=== PATIENT | female | born 1975 | race Caucasian/White ===

== ENCOUNTER 2016-11-09 19:52 | Inpatient (IN) | payer OTHER ==
[~2016-11-09] VITALS: Ht 157.5 cm; Wt 95.3 kg
[~2016-11-09 19:52] MED LIST: CLON0.5T4 PO; DIVA-18 PO; LAM1; PALI9TAB3 PO; PROT40
[2016-11-09] MEDS ORDERED: SODIUM CHLORIDE 0.9% 1,000 ML IV ONE (22:36)
[2016-11-09] MEDS ORDERED: ACETAMINOPHEN 325MG TABLET PO STA (22:36)
[2016-11-09] MEDS ORDERED: PIPERACILLIN/TAZ 3.375G PREMIX 50 ML IV ONE (22:45)
[2016-11-09] MEDS ORDERED: VANCOMYCIN 1 G PREMIX 200 ML IV ONE (22:45)
[2016-11-09 23:05] LABS: HEMATOCRIT. 36.9 % (36.0-48.0); HEMOGLOBIN. 12.6 g/dL (12.0-16.0); MEAN CORPUSCULAR HEMOGLOBIN 30.7 pg (28.0-32.0); MEAN CORPUSCULAR HGB CONC 34.3 g/dL (31.0-37.0); MEAN CORPUSCULAR VOLUME 89.5 fL (81.0-99.0); MEAN PLATELET VOLUME 10.4 fl (7.4-10.4); PLATELET 121 x1000/uL (130-400); RED BLOOD CELL COUNT 4.12 mill/uL (4.2-5.4); RED CELL DISTRIBUTION WIDTH 12.7 % (11.6-14.6); WHITE BLOOD COUNT 18.2 x1000/uL (4.5-11.0)
[2016-11-09 23:08] LABS: DIFFERENTIAL COMMENT 1
[2016-11-09 23:09] LABS: CHLORIDE 97 mEq/L (98-107); INDEX HEMOLYSI 1 (1-3); INDEX ICTERIC 1 (1-4); INDEX LIPEMIC 1 (1-3)
[2016-11-09 23:10] LABS: INR 1.1
[2016-11-09 23:16] LABS: ALANINE AMINOTRANSFERASE 26 IU/L (13-61); ANION GAP 15; CALCIUM 8.6 mg/dL (8.5-10.1); CARBON DIOXIDE 26 mEq/L (21-32); UREA NITROGEN BLOOD 10 mg/dL (7-21); eGFR > 60 mL/min (>60)
[2016-11-09 23:23] LABS: PLATELET ESTIMATE DECREASED
[2016-11-10] MEDS ORDERED: MORPHINE SULFATE 4 MG/ML CPJ (NOT FOR IM USE) IV ONE (01:45)
[2016-11-10] MEDS ORDERED: ONDANSETRON HCL 4MG/2ML VIAL IV ONE (01:45)
[2016-11-10] MEDS ORDERED: GUAIFENESIN-DM 200MG-20MG/10ML UDC PO ONE (05:30)
[2016-11-10] MEDS: HYDROCODONE/ACETAMINOPHEN 5/325MG TABLET PO PRN ×2 (09:41→15:03)
[2016-11-10] MEDS ORDERED: MORPHINE SULFATE 2 MG/ML CPJ (NOT FOR IM USE) IV PRN ×2 (09:45→19:30)
[2016-11-10 16:54] VITALS: BP 112/64
[2016-11-10 17:00] VITALS: BP 112/64
[2016-11-10] MEDS ORDERED: FLUO40CA49 PO (17:40)
[2016-11-10] MEDS ORDERED: LEVE500T19 PO ×2 (17:40)
[2016-11-10] MEDS ORDERED: DOCU-150 PO (17:40)
[2016-11-10] MEDS ORDERED: NORG1TAB18 PO (17:40)
[2016-11-10] MEDS ORDERED: DIVA500T51 PO (17:40)
[2016-11-10 18:00] VITALS: BP 112/64
[2016-11-10] MEDS ORDERED: LORAZEPAM 2MG/ML CPJ IV PRN (19:30)
[2016-11-10] MEDS ORDERED: ONDANSETRON HCL 4MG/2ML VIAL IV PRN (19:30)
[2016-11-10] MEDS ORDERED: ACETAMINOPHEN 325MG TABLET PO PRN (19:30)
[2016-11-10 20:00] VITALS: BP 104/71
[2016-11-10] MEDS ORDERED: DIVALPROEX SODIUM 500MG ER TABLET PO SCH (21:00)
[2016-11-10] MEDS ORDERED: LEVETIRACETAM 500MG TABLET PO SCH (21:00)
[2016-11-10] MEDS ORDERED: DIVALPROEX SODIUM 500MG DR TABLET PO SCH (21:00)
[2016-11-10] MEDS ORDERED: ENOXAPARIN 30MG/0.3ML SYR SUBCUT SCH (21:00)
[2016-11-10] MEDS ORDERED: VANCOMYCIN 1500MG in DEXTROSE 5% WATER 250ML IV NR (22:00)
[2016-11-10] MEDS: SODIUM CHLORIDE 0.9% 1,000 ML IV SCH (22:42)
[2016-11-10] MEDS: PIPERACILLIN/TAZ 3.375G PREMIX 50 ML IV SCH (22:42)
[2016-11-11] VITALS: BP 116/64
[2016-11-11] MEDS: PIPERACILLIN/TAZ 3.375G PREMIX 50 ML IV SCH ×4 (03:31→20:11)
[2016-11-11 04:00] VITALS: BP 99/57
[2016-11-11 05:49] LABS: BASOPHILS % 0.3 % (0.0-2.0); EOSINOPHILS % 0.6 % (0.0-5.0); HEMATOCRIT. 31.8 % (36.0-48.0); HEMOGLOBIN. 10.8 g/dL (12.0-16.0); MEAN CORPUSCULAR HEMOGLOBIN 30.5 pg (28.0-32.0); MEAN CORPUSCULAR VOLUME 89.9 fL (81.0-99.0); MEAN PLATELET VOLUME 10.4 fl (7.4-10.4); MONOCYTES % 9.9 % (2.0-8.0); NEUTROPHILS % 68.2 % (40.0-76.0); PLATELET 102 x1000/uL (130-400); RED BLOOD CELL COUNT 3.54 mill/uL (4.2-5.4); RED CELL DISTRIBUTION WIDTH 12.7 % (11.6-14.6); WHITE BLOOD COUNT 8.7 x1000/uL (4.5-11.0)
[2016-11-11 06:06] LABS: ANION GAP 11; CALCIUM 8.2 mg/dL (8.5-10.1); CARBON DIOXIDE 30 mEq/L (21-32); CHLORIDE 103 mEq/L (98-107); INDEX HEMOLYSI 1 (1-3); INDEX ICTERIC 1 (1-4); INDEX LIPEMIC 1 (1-3)
[2016-11-11 06:08] LABS: eGFR > 60 mL/min (>60)
[2016-11-11 06:31] LABS: UREA NITROGEN BLOOD 5 mg/dL (7-21)
[2016-11-11 08:52] VITALS: BP 98/58
[2016-11-11] MEDS ORDERED: LEVETIRACETAM 500MG TABLET PO SCH (09:00)
[2016-11-11] MEDS ORDERED: CLONAZEPAM 0.5MG TABLET PO SCH (09:00)
[2016-11-11] MEDS ORDERED: DOCUSATE SODIUM 100MG CAPSULE PO SCH (09:00)
[2016-11-11] MEDS ORDERED: FLUOXETINE HCL 20MG CAPSULE PO SCH (09:00)
[2016-11-11] MEDS ORDERED: LORAZEPAM 2MG/ML CPJ IV PRN (09:15)
[2016-11-11] MEDS ORDERED: ACETAMINOPHEN 325MG TABLET PO PRN (09:15)
[2016-11-11] MEDS ORDERED: ONDANSETRON HCL 4MG/2ML VIAL IV PRN (09:15)
[2016-11-11] MEDS ORDERED: MORPHINE SULFATE 2 MG/ML CPJ (NOT FOR IM USE) IV PRN (09:15)
[2016-11-11] MEDS ORDERED: HYDROCODONE/ACETAMINOPHEN 5/325MG TABLET PO PRN (09:15)
[2016-11-11] MEDS: DOCUSATE SODIUM 100MG CAPSULE PO SCH ×3 (09:30→21:22)
[2016-11-11] MEDS: SODIUM CHLORIDE 0.9% 1,000 ML IV SCH (09:39)
[2016-11-11] MEDS: ENOXAPARIN 30MG/0.3ML SYR SUBCUT SCH ×2 (09:39→20:11)
[2016-11-11] MEDS: FLUOXETINE HCL 20MG CAPSULE PO SCH (09:39)
[2016-11-11] MEDS: LEVETIRACETAM 500MG TABLET PO SCH ×2 (09:40→20:10)
[2016-11-11] MEDS: VANCOMYCIN 1 G PREMIX 200 ML IV SCH ×2 (10:17→21:22)
[2016-11-11 13:42] VITALS: BP 106/65
[2016-11-11] MEDS: GUAIFENESIN-DM 200MG-20MG/10ML UDC PO PRN (17:01)
[2016-11-11 17:04] VITALS: BP 118/77
[2016-11-11 20:06] VITALS: BP 104/59
[2016-11-11] MEDS: DIVALPROEX SODIUM 500MG ER TABLET PO SCH (20:09)
[2016-11-12] VITALS: BP 114/71
[2016-11-12] MEDS: PIPERACILLIN/TAZ 3.375G PREMIX 50 ML IV SCH ×5 (03:24→23:06)
[2016-11-12] MEDS: SODIUM CHLORIDE 0.9% 1,000 ML IV SCH ×2 (03:25→11:04)
[2016-11-12 04:00] VITALS: BP 101/57
[2016-11-12] MEDS: DOCUSATE SODIUM 100MG CAPSULE PO SCH ×3 (06:40→21:15)
[2016-11-12 07:35] LABS: CLARITY URINE CLEAR (CLEAR); COLOR URINE ORANGE (YELLOW); GLUCOSE URINE NEGATIVE (NEGATIVE); KETONES URINE NEGATIVE (NEGATIVE); LEUKOCYTE ESTERASE URINE NEGATIVE (NEGATIVE); NITRITE URINE NEGATIVE (NEGATIVE); OCCULT BLOOD URINE 3+ (NEGATIVE); PROTEIN URINE NEGATIVE (NEGATIVE); SPECIFIC GRAVITY URINE 1.015 (1.005-1.030)
[2016-11-12 08:00] VITALS: BP 123/83
[2016-11-12 08:23] LABS: BACTERIA URINE TRACE; RBC URINE TNTC /hpf (0-2); SQUAMOUS EPITHELIAL CELL URINE FEW /lpf (RARE/1+)
[2016-11-12 08:24] LABS: WBC URINE 0-2 /hpf (0-2)
[2016-11-12] MEDS: ENOXAPARIN 30MG/0.3ML SYR SUBCUT SCH ×2 (09:00→21:00)
[2016-11-12] MEDS: LEVETIRACETAM 500MG TABLET PO SCH ×2 (09:04→21:16)
[2016-11-12] MEDS: FLUOXETINE HCL 20MG CAPSULE PO SCH (09:04)
[2016-11-12] MEDS: VANCOMYCIN 1 G PREMIX 200 ML IV SCH (11:02)
[2016-11-12 11:21] LABS: *AMPHETAMINES SCREEN URINE NEGATIVE (NEGATIVE); *BARBITURATES SCREEN URINE NEGATIVE (NEGATIVE); *BENZODIAZEPINES SCREEN URINE NEGATIVE (NEGATIVE); *COCAINE SCREEN URINE NEGATIVE (NEGATIVE); CANNABINOID URINE SCREEN NEGATIVE (NEGATIVE); ECSTASY MDMA SCREEN URINE NEGATIVE (NEGATIVE); METHADONE URINE SCREEN NEGATIVE (NEGATIVE); PHENCYCLIDINE URINE SCREEN NEGATIVE (NEGATIVE)
[2016-11-12 11:28] LABS: OPIATES URINE SCREEN PRESUMTIVE POSITIVE (NEGATIVE)
[2016-11-12 12:00] VITALS: BP 121/60
[2016-11-12 15:58] VITALS: BP 102/62
[2016-11-12] MEDS: VANCOMYCIN 1250MG in DEXTROSE 5% WATER 250ML IV SCH (17:35)
[2016-11-12 20:00] VITALS: BP 129/99
[2016-11-12] MEDS ORDERED: LORAZEPAM 2MG/ML CPJ IM NR (20:00)
[2016-11-12] MEDS ORDERED: HALOPERIDOL LACTATE 5MG/ML VIAL IM NR (20:00)
[2016-11-12] MEDS ORDERED: DIPHENHYDRAMINE 50MG/ML VIAL IM NR (20:00)
[2016-11-12] MEDS: DIVALPROEX SODIUM 500MG ER TABLET PO SCH (21:16)
[2016-11-13] VITALS: BP 112/66
[2016-11-13] MEDS: VANCOMYCIN 1250MG in DEXTROSE 5% WATER 250ML IV SCH ×3 (01:50→17:15)
[2016-11-13] MEDS: SODIUM CHLORIDE 0.9% 1,000 ML IV SCH ×2 (01:55→21:22)
[2016-11-13 04:00] VITALS: BP 111/74
[2016-11-13] MEDS: PIPERACILLIN/TAZ 3.375G PREMIX 50 ML IV SCH ×4 (04:17→21:21)
[2016-11-13] MEDS: DOCUSATE SODIUM 100MG CAPSULE PO SCH ×3 (06:00→21:22)
[2016-11-13 08:00] VITALS: BP 110/72
[2016-11-13] MEDS: ENOXAPARIN 30MG/0.3ML SYR SUBCUT SCH ×2 (09:00→21:00)
[2016-11-13] MEDS: FLUOXETINE HCL 20MG CAPSULE PO SCH (09:21)
[2016-11-13] MEDS: GUAIFENESIN-DM 200MG-20MG/10ML UDC PO PRN (09:21)
[2016-11-13] MEDS: LEVETIRACETAM 500MG TABLET PO SCH ×2 (09:21→21:22)
[2016-11-13 12:00] VITALS: BP 110/60
[2016-11-13 16:00] VITALS: BP 120/72
[2016-11-13 20:00] VITALS: BP 125/83
[2016-11-13] MEDS: LORAZEPAM 2MG/ML CPJ IM PRN (21:21)
[2016-11-13] MEDS: DIVALPROEX SODIUM 500MG ER TABLET PO SCH (21:22)
[2016-11-14] VITALS (7 sets, daily range): BP systolic 102–138; BP diastolic 64–79
[2016-11-14] MEDS: VANCOMYCIN 1250MG in DEXTROSE 5% WATER 250ML IV SCH ×2 (02:07→09:36)
[2016-11-14] MEDS: PIPERACILLIN/TAZ 3.375G PREMIX 50 ML IV SCH ×4 (02:07→22:00)
[2016-11-14] MEDS: DOCUSATE SODIUM 100MG CAPSULE PO SCH ×3 (05:09→23:34)
[2016-11-14] MEDS: LORAZEPAM 2MG/ML CPJ IM PRN (05:09)
[2016-11-14 07:29] LABS: ANION GAP 12; BASOPHILS % 0.7 % (0.0-2.0); CALCIUM 8.8 mg/dL (8.5-10.1); CARBON DIOXIDE 29 mEq/L (21-32); CHLORIDE 105 mEq/L (98-107); EOSINOPHILS % 4.8 % (0.0-5.0); HEMATOCRIT 35.3 % (36.0-48.0); HEMATOCRIT. 35.3 % (36.0-48.0); HEMOGLOBIN 11.9 g/dL (12.0-16.0); HEMOGLOBIN. 11.9 g/dL (12.0-16.0); INDEX HEMOLYSI 1 (1-3); INDEX ICTERIC 1 (1-4); INDEX LIPEMIC 1 (1-3); LYMPHOCYTES % 37.2 % (20.0-50.0); MEAN CORPUSCULAR HEMOGLOBIN 30.4 pg (28.0-32.0); MEAN CORPUSCULAR HGB CONC 33.7 g/dL (31.0-37.0); MEAN CORPUSCULAR VOLUME 90.2 fL (81.0-99.0); MEAN PLATELET VOLUME 9.9 fl (7.4-10.4); MONOCYTES % 12.9 % (2.0-8.0); NEUTROPHILS % 44.4 % (40.0-76.0); PLATELET 185 x1000/uL (130-400); RED BLOOD CELL COUNT 3.91 mill/uL (4.2-5.4); RED CELL DISTRIBUTION WIDTH 12.9 % (11.6-14.6); UREA NITROGEN BLOOD 7 mg/dL (7-21); WHITE BLOOD COUNT 6.1 x1000/uL (4.5-11.0); eGFR > 60 mL/min (>60)
[2016-11-14] MEDS: LEVETIRACETAM 500MG TABLET PO SCH ×2 (08:51→23:34)
[2016-11-14] MEDS: ENOXAPARIN 30MG/0.3ML SYR SUBCUT SCH ×2 (09:13→23:35)
[2016-11-14] MEDS: FLUOXETINE HCL 20MG CAPSULE PO SCH (09:13)
[2016-11-14] MEDS: SODIUM CHLORIDE 0.9% 1,000 ML IV SCH (16:59)
[2016-11-14] MEDS: VANCOMYCIN 1 G PREMIX 200 ML IV SCH (22:00)
[2016-11-14] MEDS: DIVALPROEX SODIUM 500MG ER TABLET PO SCH (23:34)
[2016-11-15] VITALS: BP 115/86
[2016-11-15] MEDS: PIPERACILLIN/TAZ 3.375G PREMIX 50 ML IV SCH ×2 (03:00→09:00)
[2016-11-15 04:00] VITALS: BP 124/68
[2016-11-15] MEDS: VANCOMYCIN 1 G PREMIX 200 ML IV SCH ×2 (06:00→13:05)
[2016-11-15] MEDS: SODIUM CHLORIDE 0.9% 1,000 ML IV SCH (06:19)
[2016-11-15] MEDS: DOCUSATE SODIUM 100MG CAPSULE PO SCH ×2 (07:06→13:08)
[2016-11-15 08:00] VITALS: BP 110/46
[2016-11-15] MEDS: ENOXAPARIN 30MG/0.3ML SYR SUBCUT SCH (09:24)
[2016-11-15] MEDS: FLUOXETINE HCL 20MG CAPSULE PO SCH (09:24)
[2016-11-15] MEDS: LEVETIRACETAM 500MG TABLET PO SCH (09:24)
[2016-11-15 09:43] VITALS: BP 110/46
[2016-11-15 12:00] VITALS: BP 122/79
== END 2016-11-15 14:37 | disposition home or self-care (01) | DRG 720 ==
LOC: ER 19:53 → 8WST 11-10 00:01
PROVIDERS: ADMIT Internal Medicine; ATTEND Internal Medicine
DX: A41.9 Sepsis, unspecified organism (principal); L03.115 Cellulitis of right lower limb; G40.909 Epilepsy, unspecified, not intractable, without status epilepticus; F20.9 Schizophrenia, unspecified; G80.9 Cerebral palsy, unspecified; H91.90 Unspecified hearing loss, unspecified ear
CPT/HCPCS: 36415; 71010; 73590; 73630; 80048; 80053; 80202; 80305; 81001; 83605; 85025; 85027; 85610; 87040; 93970; 96365; 96366; 96367; 96375; 99285; C1893; J1200; J1630; J1650; J2060; J2270; J2405; J2543; J3370; J7030; J7060